=== PATIENT | female | born 1980 | race Asian ===

== ENCOUNTER 2018-03-23 11:08 | Emergency (ER) | payer OTHER ==
[~2018-03-23] VITALS: Ht 149.9 cm; Wt 45.8 kg
[2018-03-23] MEDS ORDERED: NOHOMEMEDICATIONS (11:20)
[2018-03-23 11:31] LABS: ABSOLUTE BASOPHILS 0.1 thou/uL (0.0-0.2); ABSOLUTE EOSINOPHILS 0.1 thou/uL (0.0-0.7); ABSOLUTE LYMPHOCYTES 4.3 thou/uL (0.8-5.3); ABSOLUTE MONOCYTES 0.6 thou/uL (0.0-1.2); ABSOLUTE NEUTROPHILS 3.6 thou/uL (1.6-8.1); BASOPHILS 0.7 %; EOSINOPHILS 1.5 %; HEMATOCRIT 39.7 % (37.0-47.0); HEMOGLOBIN 13.2 gm/dL (12.0-15.0); LYMPHOCYTES 49.4 %; MCH 29.4 pg (26.0-34.0); MCHC 33.4 g/dL (28.0-37.0); MCV 88.2 fL (80.0-100.0); MONOCYTES 7.1 %; MPV 7.6 fl. (7.2-11.1); NUCLEATED RBCS 0 /100WBC; PLATELET COUNT* 380 thou/uL (150-400); POLYS 41.3 %; RDW-CV 13.2 % (10.5-14.5); WBC 8.7 thou/uL (4.0-11.0)
[2018-03-23 11:47] LABS: ALBUMIN 3.8 g/dL (3.4-5.0); ALKALINE PHOSPHATASE 55 U/L (46-116); ANION GAP 8 mmol/L (7-16); BUN 12 mg/dL (7-18); CALCIUM 8.7 mg/dL (8.5-10.1); CHLORIDE 102 mmol/L (98-107); CO2 29 mmol/L (21-32); CREATININE 0.7 mg/dL (0.6-1.3); GLUCOSE 124 mg/dL (70-99); SGOT 15 U/L (15-37); SGPT 26 U/L (30-65); SODIUM 139 mmol/L (136-145); TOTAL BILIRUBIN 0.8 mg/dL (<0.1-1.0); TOTAL PROTEIN 7.9 g/dL (6.4-8.2)
[2018-03-23 11:49] LABS: POTASSIUM 2.9 mmol/L (3.5-5.1)
[2018-03-23 12:03] LABS: TROPONIN-I LEVEL <0.06 ng/mL (<0.06)
[2018-03-23] MEDS ORDERED: POTASSIUM20 PO (12:13)
[2018-03-23] MEDS ORDERED: ZOFRAN4 MG PO (12:56)
[2018-03-23 13:13] VITALS: BP 118/69
--- NOTE | 2018-03-23 16:50 | EKG ---
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
== END 2018-03-23 13:14 | disposition home or self-care (01) ==
LOC: M.ERS 11:08
PROVIDERS: Nurse Practitioner Family
DX: E87.6 Hypokalemia (principal); R11.2 Nausea with vomiting, unspecified